=== PATIENT | male | born 1995 | race Caucasian/White ===

== ENCOUNTER 2023-07-08 16:09 | Outpatient (AMB) | payer OTHER, SELFPAY ==
[2023-07-08 17:02] VITALS: BP 122/76; PULSE 66; TEMP 36.6; O2SAT 99; BMI 32.9
--- NOTE | 2023-07-08 17:02 | MHC.OFFWIV ---
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 Patient has infection on the left big toe. Symptoms started after he tried to cut his toenail. He reports of throbbing pain and discharge. [facility] Social History Patient Tobacco Use Status: Never used Tobacco Physical Exam Vital Signs: Last Vital Signs Temp 97.9 F 07/08/23 17:02 Pulse 66 07/08/23 17:02 BP 122/76 07/08/23 17:02 Pulse Ox 99 07/08/23 17:02 BMI result Body Mass Index 32.9 Extrem Other: Right great toe: Ingrowing toenail. Surrounding nail edges are swollen, erythematous, tender and edematous. Purulent discharge present. Assessment & Plan Assessment & Plan (1) Paronychia of great toe of right foot: Code(s): L03.031 - Cellulitis of right toe Plan: Antibiotics called in. Patient was advised to keep the foot elevated. Vaccine [employer] referral made. Medications: New cephalexin 500 mg PO BID 14 caps 0RF Coding Level of Care Code Est Pt Level 3 (71991) Diagnoses Paronychia of great toe of right foot L03.031
== END 2023-07-08 17:12 | disposition home or self-care (01) ==
PROVIDERS: Visit Provider Internal Medicine
DX: L03.031 Cellulitis of right toe (principal)
CPT/HCPCS: 99213

== ENCOUNTER 2023-10-14 13:19 | Outpatient (AMB) | payer OTHER, SELFPAY ==
[2023-10-14 13:43] VITALS: BP 120/74; PULSE 52; TEMP 36.4; O2SAT 100; BMI 33.9
--- NOTE | 2023-10-14 13:43 | AM.OFFWIN_ITS ---
Intake Vital Signs 10/14/23 13:43 Height 5 ft 11 in Weight 243 lb BMI 33.9 BP 120/74 Blood Pressure Location Rt brachial Position Sitting Pulse 52 Pulse Source Pulse Oximeter Temp 97.6 F Temp Source Temporal Artery Scan Pulse Oximetry (%) 100 Intake Visit Reasons: EP RT toe infected Intake Note: pt is here for c/o right big toe infection Patient Tobacco Use Status: Never used Tobacco Allergies No Known Allergies Allergy (Verified 10/14/23 14:22) Medication List - Last Reconciled 10/14/23 by Marshall Ayon MD No Known Home Meds Do you need a note to return to daycare/school/sports/work: Yes HPI EP RT toe infected HPI Details 27-year-old male presents to the office for a sick visit. Patient is reporting discharge around his right great toe with redness. No difficulty walking. [facility] Social History Patient Tobacco Use Status: Never used Tobacco Physical Exam Vital Signs: Last Vital Signs Temp 97.6 F 10/14/23 13:43 Pulse 52 10/14/23 13:43 BP 120/74 10/14/23 13:43 Pulse Ox 100 10/14/23 13:43 BMI result Body Mass Index 33.9 Extrem Other: Right great toe: fluctuant swelling on the edge of the nail, tender to touch Assessment & Plan Assessment & Plan (1) Paronychia of great toe of right foot: Code(s): L03.031 - Cellulitis of right toe Plan: Antibiotics called in. List of wallpaper hanger provided. Pt should get a partial nail excision Coding Level of Care Code Est Pt Level 3 (43955) Diagnoses Paronychia of great toe of right foot L03.031
== END 2023-10-14 14:42 | disposition home or self-care (01) ==
PROVIDERS: Visit Provider Internal Medicine
DX: L03.031 Cellulitis of right toe (principal)
CPT/HCPCS: 99213

== ENCOUNTER 2025-08-06 14:07 | Outpatient (AMB) | payer OTHER, SELFPAY ==
[2025-08-06 14:11] VITALS: BP 118/60; PULSE 96; TEMP 37.1; O2SAT 98; BMI 35.7
--- NOTE | 2025-08-06 14:11 | MHC.OFFWIV ---
Intake Vital Signs 08/06/25 14:11 Height 5 ft 11 in Weight 256 lb BMI 35.7 BP 118/60 Blood Pressure Location Rt brachial Position Sitting Pulse 96 Pulse Source Pulse Oximeter Temp 98.7 F Temp Source Oral Pulse Oximetry (%) 98 Intake Visit Reasons: ep infection on big toe on left foot Intake Note: pt presents with non healing infection LT great toe Patient Tobacco Use Status: Never used Tobacco Allergies No Known Allergies Allergy (Verified 08/06/25 14:15) Do you need a note to return to daycare/school/sports/work: No HPI ep infection on big toe on left foot HPI Details 29 year old male patient presents to the [facility] with report of an ingrown left big toe. This has been a recurrent problem over the last several years. He has been referred to podiatry in the past however has not schedule a visit yet. He states that soaking his affected foot and antibiotics typically resolve the issue. His left great toe has been bothersome for the last week or so. It is starting to become painful and slightly pink, and patient reports once this happens it always becomes worse, requiring treatment. He has been doing epsom salt/water soaks twice a day. No drainage or fevers. [facility] Social History Patient Tobacco Use Status: Never used Tobacco Review of Systems Const All systems reviewed & are unremarkable except as noted in HPI and below Physical Exam Vital Signs: Last Vital Signs Temp 98.7 F 08/06/25 14:11 Pulse 96 08/06/25 14:11 BP 118/60 08/06/25 14:11 Pulse Ox 98 08/06/25 14:11 BMI result Body Mass Index 35.7 Const General: cooperative, healthy appearing, comfortable and no acute distress Resp Effort & Inspection: normal respiratory effort Skin General skin exam: no rashes or lesions noted Extrem Other: lateral aspect of left great toe appears ingrown; slightly erythematous with some dried blood under nail. No discharge. Psych Appearance: grossly normal Mental Status: mental status grossly normal Assessment & Plan Assessment & Plan (1) Paronychia of great toe of left foot: Code(s): L03.032 - Cellulitis of left toe Plan: Patient has done well in previous years with similar infections when taking Cephalexin. Will prescribe this, and strongly advised patient to contact podiatry office. Contact information provided. He can continue epsom salt soaks. If he does not improve with treatment or if area becomes increasingly red, painful, swollen, or has discharge, he should return for further evaluation and treatment. No PCP - patient encouraged to get established with PCP for future needs. Medications: New cephalexin 500 mg PO BID 14 caps 0RF 7 days L03.032 - Cellulitis of left toe Coding Level of Care Code Est Pt Level 4 (94975) Diagnoses Paronychia of great toe of left foot L03.032
== END 2025-08-06 14:42 | disposition home or self-care (01) ==
PROVIDERS: Visit Provider Nurse Practitioner Family
DX: L03.032 Cellulitis of left toe (principal)